=== PATIENT | female | born 1945 | race Two or more races ===

== ENCOUNTER 2020-08-12 10:04 | Outpatient (CLI) | payer OTHER ==
[~2020-08-12 10:04] MED LIST: BONIVA150 MG PO; LIPITOR40 MG PO; PAXIL CR25 MG PO; SYNTHROID88 MCG PO
== END 2020-08-12 10:06 | disposition home or self-care (01) ==
LOC: MAMO-SONO 10:04
PROVIDERS: ATTEND Internal Medicine
DX: D24.1 Benign neoplasm of right breast (principal); D24.2 Benign neoplasm of left breast; N64.59 Other signs and symptoms in breast